=== PATIENT | female | born 1995 | race Hispanic/Latino ===

== ENCOUNTER 2020-01-01 14:34 | Emergency (ER) | payer OTHER ==
[2020-01-01] MEDS ORDERED: ACETAMINOPHEN 325 MG TAB ONE (15:12)
== END 2020-01-01 15:44 | disposition home or self-care (01) ==
LOC: EDH 14:34 → EDSEX 14:34 → EDH 15:44
DX: S43.401A Unspecified sprain of right shoulder joint, initial encounter (principal); V49.9XXA Car occupant (driver) (passenger) injured in unspecified traffic accident, initial encounter; Y93.89 Activity, other specified; Y92.488 Other paved roadways as the place of occurrence of the external cause; Y99.8 Other external cause status
CPT/HCPCS: 73030